=== PATIENT | female | born 1945 | race Caucasian/White ===

== ENCOUNTER 2016-11-25 09:11 | Outpatient (CLI) | payer OTHER | END 2016-11-25 18:45 | disposition home or self-care (01) | LOC: SMA 09:11 | PROVIDERS: ATTEND Obstetrics & Gynecology Gynecology | DX: Z12.31 Encounter for screening mammogram for malignant neoplasm of breast (principal) | CPT/HCPCS: 77067; G0202 ==

== ENCOUNTER 2018-02-01 10:15 | Outpatient (CLI) | payer OTHER | END 2018-02-01 17:45 | disposition home or self-care (01) | LOC: SMA 10:15 | PROVIDERS: ATTEND Obstetrics & Gynecology Gynecology | DX: Z12.31 Encounter for screening mammogram for malignant neoplasm of breast (principal) | CPT/HCPCS: 77067 ==

== ENCOUNTER 2019-02-14 08:39 | Outpatient (CLI) | payer OTHER | END 2019-02-14 18:01 | disposition home or self-care (01) | LOC: SMA 08:39 | PROVIDERS: ATTEND Obstetrics & Gynecology Gynecology | DX: Z12.31 Encounter for screening mammogram for malignant neoplasm of breast (principal); R92.1 Mammographic calcification found on diagnostic imaging of breast | CPT/HCPCS: 77067 ==